=== PATIENT | female | born 1975 | race Caucasian/White ===

== ENCOUNTER 2017-05-05 08:32 | Day surgery (SDC) | payer BC ==
--- NOTE | 2017-05-05 09:07 | OR ---
Anesthesia Pre Procedure Eval Date of Service: 05/05/17 Pre Procedure Evaluation: Last Vital Signs Temp 36.4 C L 05/05/17 08:44 Pulse 80 05/05/17 08:44 Resp 18 05/05/17 08:44 BP 114/66 05/05/17 08:44 Pulse Ox 95 05/05/17 08:44 O2 Oxygen Delivery Method Room Air Anesthesia Pre Procedure Evaluation DATE: 05/05/2017 TIME: INDICATIONS: Headaches, pseudotumor cerebri PAST MEDICAL HISTORY: Ms. Carranza is had a long history of headaches and has been diagnosed as pseudotumor cerebri. She's had 2 lumbar punctures in the past with temporary relief from draining spinal fluid. She is here today for a lumbar puncture which will include opening probably closing pressures and draining of fluid for specimens. EXAM: Heart S1-S2 regular; lungs clear bilaterally ASSESSMENT OF MEDICAL STATUS: Ms. Carranza is on no anticoagulants he procedure and risks were explained, she is an appropriate candidate for lumbar puncture. PLANNED PROCEDURE: Lumbar puncture Home Medications: HOME MEDICATIONS acetaZOLAMIDE [Acetazolamide (Diamox)] 250 mg PO BID 04/28/17 [Last Taken ] Albuterol Sulfate [Proair Hfa] 1 - 2 puff IH Q4H PRN 05/05/17 [Last Taken ] Budesonide/Formoterol Fumarate [Symbicort 80-4.5 Mcg Inhaler] 2 puff IH BID 04/16 [Last Taken 05/04/17] Cetirizine HCl [Zyrtec] 10 mg PO DAILY 05/05/17 [Last Taken 05/04/17] Famotidine [Pepcid] 20 mg PO BID 05/05/17 [Last Taken 05/04/17] acetaZOLAMIDE [Acetazolamide (Diamox)] 500 mg PO HS 05/05/17 [Last Taken ]
[2017-05-05] MEDS ORDERED: LIDOCAINE HCL 20 ML VIAL IJ ONE (09:20)
--- NOTE | 2017-05-05 09:59 | OR ---
Anesthesia Procedure Note - Anesthesia Procedure Note Date of Service: 05/05/17 Narrative: Vital Signs - Last Taken Temp 36.4 C L 05/05/17 08:44 Pulse 72 05/05/17 09:50 Resp 18 05/05/17 09:50 BP 109/73 05/05/17 09:50 Pulse Ox 96 05/05/17 09:50 O2 Oxygen Delivery Method Room Air 05/05/17 09:56 ANESTHESIA PROCEDURE NOTE Date of Procedure: 05/05/2017 Time of procedure: 07 30. Performed by: JUSTINE Sandra CRNA, MSN [place] Supervisor: Mouna LOZANO. Preprocedure diagnosis: Pseudotumor cerebri, headaches. Post procedure diagnosis: Same. Procedure: Lumbar Puncture L3 4. Indications: Headaches. Findings: See below. Details of the procedure: The patient was placed in sitting position the back was prepped with Duraprep and draped in a sterile fashion. The L 34 interspace was localized with 1% lidocaine solution. Using a #22-gauge Velasquez needle the CSF was contacted and clear CSF returned. Ms. Carranza was then turned right lateral where the opening pressure measured 26 centimeters water pressure. 4 vials of CSF were harvested and the closing pressure was measured at 17 cm water pressure. The spinal needle was then removed and a Band-Aid was applied. EBL: Minimal. Fluids: N/A. Specimen:3vials of clear CSF4 milliliters each, 1 vial of CSF with 8 mL. Post procedure condition: The patient tolerated the procedure well. No complications were noted. Thank you for this consultation. Willy Littlejohn CRNA, ARNP, MSN
[2017-05-05 10:16] LABS: CSF Appearance Clear (CLEAR); CSF Color Colorless (COLORLESS); CSF RBC 102 /uL (0-10); CSF WBC 0 /uL (0-10)
[2017-05-05 10:16] LABS: CSF Appearance Clear (CLEAR); CSF Color Colorless (COLORLESS); CSF RBC 3 /uL (0-10); CSF WBC 0 /uL (0-10)
[2017-05-05 10:30] VITALS: BP 114/73
== END 2017-05-05 08:33 | disposition home or self-care (01) ==
LOC: AMB 08:32
PROVIDERS: ATTEND Physician Assistant
PROC: 009U3ZX Drainage of Spinal Canal, Percutaneous Approach, Diagnostic (ICD-10-PCS; principal; 2017-05-05 09:30)
DX: G93.2 Benign intracranial hypertension (principal); Z68.36 Body mass index [BMI] 36.0-36.9, adult

== ENCOUNTER 2017-06-20 02:32 | Emergency (ER) | payer BC ==
[2017-06-20 02:42] VITALS: BP 153/84
[2017-06-20] MEDS ORDERED: KETOROLAC TROMETHAMINE 30 MG/ML VIAL IM ONE (02:51)
[2017-06-20] MEDS ORDERED: KETOROLAC TROMETHAMINE 30 MG/ML VIAL ONE (02:56)
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
[2017-06-20] MEDS ORDERED: HYDROcodone/ACETAMINOPHEN 1 EACH TABLET ONE (03:10)
[2017-06-20] MEDS ORDERED: HYDROcodone/ACETAMINOPHEN 1 EACH TABLET PO ONE (03:10)
== END 2017-06-20 03:17 | disposition home or self-care (01) ==
LOC: ER 02:32
PROC: 2W3BX3Z Immobilization of Left Upper Arm using Brace (ICD-10-PCS; principal; 2017-06-20)
DX: S16.1XXA Strain of muscle, fascia and tendon at neck level, initial encounter (principal); S46.912A Strain of unspecified muscle, fascia and tendon at shoulder and upper arm level, left arm, initial encounter; V43.52XA Car driver injured in collision with other type car in traffic accident, initial encounter; Y93.9 Activity, unspecified; Y92.410 Unspecified street and highway as the place of occurrence of the external cause; K21.9 Gastro-esophageal reflux disease without esophagitis; Z85.41 Personal history of malignant neoplasm of cervix uteri; F17.200 Nicotine dependence, unspecified, uncomplicated

== ENCOUNTER 2017-08-28 04:16 | Observation (INO) | payer BC, OTHER ==
[2017-08-28] MEDS ORDERED: MORPHINE SULFATE 4 MG/ML SYRG IV ONE (04:28)
[2017-08-28] MEDS ORDERED: ALBUTEROL SULFATE/IPRATROPIUM 3 ML NEBU IH ONE ×2 (04:28)
[2017-08-28] MEDS ORDERED: NORMAL SALINE 1,000 ML IV ONE ×2 (04:28→06:57)
[2017-08-28] MEDS ORDERED: MORPHINE SULFATE 4 MG/ML SYRG ONE (04:30)
[2017-08-28] MEDS ORDERED: diphenhydrAMINE HCL 50 MG/ML VIAL IV ONE (04:35)
--- NOTE | 2017-08-28 04:35 | ERNOTE ---
Date of Service: 08/28/17 Time Seen by Provider: 08/28/17 04:22 Stated Complaint: URI Presenting Symptoms:: cough, sore throat, fever Source: patient, family Immunizations: IMMUNIZATION HX Immunizations Up to Date Yes History of Influenza Vaccine Yes Hx Pneumococcal Vaccination No Allergies/Adverse Reactions: Allergies NSAIDS (Non-Steroidal Anti-Inflamma Allergy (Mild, Verified 08/28/17 04:22) Hives no issues with tylenol or tramadol morphine Adverse Reaction (Mild, Verified 08/28/17 04:22) "emotional issues" Home Medications: HOME MEDICATIONS acetaZOLAMIDE [Acetazolamide (Diamox)] 250 mg PO BID 04/28/17 [Last Taken ] Albuterol Sulfate [Proair Hfa] 1 - 2 puff IH Q4H PRN 05/05/17 [Last Taken ] Budesonide/Formoterol Fumarate [Symbicort 80-4.5 Mcg Inhaler] 2 puff IH BID 04/16 [Last Taken 05/04/17] Cetirizine HCl [Zyrtec] 10 mg PO DAILY 05/05/17 [Last Taken 05/04/17] Famotidine [Pepcid] 20 mg PO BID 05/05/17 [Last Taken 05/04/17] acetaZOLAMIDE [Acetazolamide (Diamox)] 500 mg PO HS 05/05/17 [Last Taken ] - History of Present Ilness Narrative: This is a 41-year-old female who presents to the emergency department at 4:30. The patient says she got a flu shot about 3 weeks ago and since then hasn't been "quite right". Patient says that her symptoms have been waxing and waning. She is complaining of a productive cough. She has been having yellow colored sputum with blood in it. She is complaining of right-sided pleuritic chest pain. She is complaining of myalgias. Says that she feels like she has a fever. She is a smoker but says she is only been smoking 5 cigarettes a day. Review of Systems - Review of Systems Constitutional: Present: fever, weakness, fatigue, malaise EYE: Present: no symptoms reported ENT: Present: no symptoms reported Respiratory: Present: shortness of breath, cough, wheezing Cardiology: Present: chest pain, other - pleuritic right-sided Gastrointestinal/Abdominal: Present: eating less, drinking less Genitourinary: Present: no symptoms reported Musculoskeletal: Present: back pain, muscle pain, neck pain, joint pain Skin: Present: no symptoms reported Neurological: Present: no symptoms reported Endocrine: Present: no symptoms reported Hematologic/Lymphatic: Present: no symptoms reported Psych: Present: no symptoms reported All Other Systems: All systems neg except as marked - Patient's Past Medical History Patient History - Medical: GERD, Other Patient History - Cardiac/Respiratory: Asthma Patient History - Cancer: Cervical Patient History - Surgical Procedures: Cholecystectomy, Hysterectomy, Tubal Ligation, Other Patient History - Other: None - Social History Living Situations: home Abuse History: No History of abuse Psych History: No pertinent hx Smoking Status: Current every day smoker Alcohol Use: none Drug Use: none - Immunizations Immunizations Up to Date: Yes Hx Pneumococcal Vaccination: No History of Influenza Vaccine: Yes Physical Exam - Physical Exam General Appearance: Present: wd/wn, alert, other - patient appears acutely uncomfortable. She is coughing. She is unable to catch her breath at times. Head Exam: Present: normal inspection, no evidence of injury Eye Exam: Normal inspection: bilateral Ears, Nose, Throat: Present: normal ENT inspection, normal pharynx Neck: Present: normal inspection, nontender, other - no nodes Respiratory: Present: other - she has mild respiratory distress with diffuse wheezing cough and decreased breath sounds at the right base Cardiovascular/Chest: Present: regular rate, rhythm, other - tachycardic I hear no murmurs or rubs Gastrointestinal/Abdominal: Present: normal bowel sounds, nontender, nondistended, soft Extremity Exam: Present: normal inspection, non-tender, normal range of motion, no edema Neurological Exam: Present: alert, oriented, normal mood/affect, no motor/ sensory deficits Skin Exam: Present: normal color, warm/dry Lymphatic Exam: Present: no adenopathy ED Progress - Results and Orders Patient's Lab Results:: I have reviewed the patient's lab results. - Vital Signs Patient's Vital Signs:: I have reviewed the patient's vital signs. Vital Signs: Vital Signs 08/28/17 04:18 Temperature 37.8 C H Pulse Rate 121 H Respiratory 24 H Rate Blood Pressure 115/63 O2 Sat by Pulse 94 Oximetry - Progress/Reassessment Chief Complaint: Upper Respiratory Symptoms Progress:: Improved Progress Note-Subjective: 08/28/17 06:01 The patient received breathing treatments steroids and morphine for cough and Benadryl for itching related to the morphine. The patient is feeling a bit better although she is still not oxygenating well. She is saturating between 90 and 93% on room air. She is still diminished throughout her lungs. She also has a potassium of 2.5. Potassium at 2.5 isn't admittable diagnosis. Hypoxia isn't admittable diagnosis. The patient technically meets the criteria for sepsis. Lactic acid is normal. If this is sepsis it's a viral infection causing it. The viral panel is presently pending. I anticipate she will need one day or less in the hospital to get her feeling better. Departure Clinical Impression: Sepsis, Upper respiratory infection - Departure Disposition: [facility] Condition: Good Referrals: Emy Braxton FNP [Primary Care Provider] -
[2017-08-28] MEDS ORDERED: diphenhydrAMINE HCL 50 MG/ML VIAL ONE (04:44)
[2017-08-28 04:55] LABS: Hematocrit 40.4 % (37.0-47.0); Hemoglobin 14.3 gm/dL (12.5-16.0); Mean Corpuscular Hemoglobin 31.5 pg (27-31); Mean Corpuscular Hgb Conc 35.4 g/dl (32-36); Mean Platelet Volume 9.4 fl (6.0-9.5); Neutrophil # 12.3 K/mm3 (1.3-6.0); Neutrophil % 72.4 % (42-75.0); Platelet Count 255 K/mm3 (150-450); Red Blood Count 4.54 M/mm3 (4.2-5.4); Red Cell Distribution Width 12.3 % (11.5-14.0)
[2017-08-28 05:02] LABS: Anion Gap 13.5 mmol/L (6.8-13.8); Estimated Creat Clear 104.3
[2017-08-28 05:04] LABS: Potassium 2.5 mmol/L (3.4-4.6)
[2017-08-28] MEDS ORDERED: METHYLPREDNISOLONE SOD SUCC/PF 125 MG/2 ML VIAL IV ONE (05:05)
[2017-08-28] MEDS ORDERED: POTASSIUM CHLORIDE 20 MEQ TABLET.SA PO ONE (05:05)
[2017-08-28] MEDS ORDERED: POTASSIUM CHLORIDE 20 MEQ TABLET.SA ONE (05:12)
[2017-08-28] MEDS ORDERED: METHYLPREDNISOLONE SOD SUCC/PF 125 MG/2 ML VIAL ONE (05:12)
[2017-08-28] MEDS: POTASSIUM CHLORIDE 100 ML IV SCH ×4 (05:19→09:47)
[2017-08-28] MEDS ORDERED: AZITHROMYCIN 500 MG in DEXTROSE 5 % IN WATER 250 ML IV ONE ×2 (05:30)
[2017-08-28] MEDS: NORMAL SALINE 1,000 ML IV PRN ×2 (06:29→09:46)
[2017-08-28] MEDS ORDERED: POTASSIUM CHLORIDE 10 MEQ in NORMAL SALINE 1,000 ML IV SCH (06:30)
[2017-08-28 10:00] VITALS: BP 106/65
--- NOTE | 2017-08-28 12:27 | HP ---
Chief Complaint - Chief Complaint Date of Service: 08/28/17 Time of Service: 11:00 Chief Complaint: Cough History of Present Illness: The patient presented to the emergency department with a productive cough with yellow colored sputum tinged with blood. She also complained of right-sided chest pain that occurred while coughing or after having a coughing attack. The patient also complained of body aches, fevers and chills. She denies any known sick contacts. The first thing the patient said to me when I saw her after she was admitted was that she wanted to go home. - Patient's Past Medical History Patient History - Medical: GERD, Other Patient History - Cardiac/Respiratory: Asthma Patient History - Cancer: Cervical Patient History - Surgical Procedures: Cholecystectomy, Hysterectomy, Tubal Ligation, Other Patient History - Other: None LMP (females 10-50): 12 yrs ago - Family History Mother Family History - Medical: , History Unknown Family History - Cardiac/Respiratory: CHF, COPD, Hypertension, Myocardial Infarction Family History - Cancer: No pertinent family hx Father Family History - Medical: Seizures Family History - Cardiac/Respiratory: History Unknown, Hypertension Family History - Cancer: No pertinent family hx, History Unknown - Social History Living Situations: spouse Abuse History: No History of abuse Psych History: No pertinent hx Smoking Status: Current some day smoker Have you smoked in the past 12 months: Yes Do you dip or chew tobacco: No Patient requests Smoking Cessation Consult: No Initiate information on Smoking Cessation: Yes Alcohol Use: none Drug Use: none - Immunizations Immunizations Up to Date: Yes Hx Pneumococcal Vaccination: No History of Influenza Vaccine: Yes Review Of Systems (GEN) - Review of Systems Generalized/Overall Review: Present: Weakness, Chills, Fever, Malaise, Fatigue EENTM: Present: No Symptoms Reported Respiratory: Present: Cough Cardiac: Present: Chest Pain - secondary to coughing Abdominal: Present: No Symptoms Reported Genitourinary: Present: No Symptoms Reported Musculoskeletal: Present: No Symptoms Reported Neurological: Present: No Symptoms Reported Skin: Present: No Symptoms Reported Endocrine: Present: No Symptoms Reported Misc: All systems neg except as marked Immunizations: IMMUNIZATION HX Immunizations Up to Date Yes History of Influenza Vaccine Yes Hx Pneumococcal Vaccination No Allergies/Adverse Reactions: Allergies Allergy/AdvReac Type Severity Reaction Status Date / Time NSAIDS (Non-Steroidal Allergy Mild Hives Verified 08/28/17 04:22 Anti-Inflamma morphine AdvReac Mild "emotional Verified 08/28/17 04:22 issues" Home Medications: HOME MEDICATIONS RX: acetaZOLAMIDE [Diamox] 250 mg PO QAM 04/28/17 [Last Taken 05/04/17] RX: Albuterol Sulfate [Proair Hfa] 1 - 2 puff IH Q4H PRN 05/05/17 [Last Taken ] RX: Budesonide/Formoterol Fumarate [Symbicort 80-4.5 Mcg Inhaler] 2 puff IH BID 05/05/17 [Last Taken 05/04/17] RX: Cetirizine HCl [Zyrtec] 10 mg PO DAILY 05/05/17 [Last Taken 05/04/17] RX: Famotidine [Pepcid] 20 mg PO BID 05/05/17 [Last Taken 05/04/17] RX: acetaZOLAMIDE [Diamox] 500 mg PO HS 05/05/17 [Last Taken 05/04/17] Benzonatate [Tessalon] 200 mg PO TID PRN #30 cap 08/28/17 [Last Taken Unknown] RX: Azithromycin 500 mg PO DAILY #8 tablet 08/28/17 [Last Taken Unknown] RX: Potassium Chloride [K-Dur] 40 meq PO DAILY #60 tab 08/28/17 [Last Taken Unknown] RX: acetaZOLAMIDE [Diamox] 500 mg PO DAILY 08/28/17 [Last Taken Unknown] Exam - Exam Vital Signs: Vital Signs - Last Taken Temp 36.8 C 08/28/17 09:59 Pulse 90 08/28/17 09:59 Resp 18 08/28/17 09:59 BP 106/65 08/28/17 09:59 Pulse Ox 96 08/28/17 09:59 Constitutional: Present: Alert, Oriented x3, Cooperative, Well developed, Well nourished, Acute distress - Appears uncomfortable especially with coughing, Obese ENT Exam: Present: hearing grossly normal, moist mucous membranes Eye Exam: bilateral eye: normal inspection, EOMI Respiratory: Present: other - Coarse breath sounds bilaterally with diffuse expiratory wheezes Cardiovascular/Chest: Present: tachycardia Abdomen: Present: soft, nontender, nondistended Extremity: Present: normal range of motion, normal inspection, no pedal edema Skin Exam: Present: normal color, warm/dry, no cyanosis Neurologic: Present: alert, normal mood/affect, oriented x 3 Appearance: Present: appropriate appearance, appropriate insight, neat, no memory impairment Eye contact: Present: cooperative, good eye contact, normal speech Thoughts: Present: normal thought pattern, no apparent hallucination Diagnostic Studies: Laboratory Results WBC 17.0 K/mm3 (4.0-10.5) H 08/28/17 04:50 RBC 4.54 M/mm3 (4.2-5.4) 08/28/17 04:50 Hgb 14.3 gm/dL (12.5-16.0) 08/28/17 04:50 Hct 40.4 % (37.0-47.0) 08/28/17 04:50 MCV 89.0 fl (78-100) 08/28/17 04:50 MCH 31.5 pg (27-31) H 08/28/17 04:50 MCHC 35.4 g/dl (32-36) 08/28/17 04:50 RDW 12.3 % (11.5-14.0) 08/28/17 04:50 Plt Count 255 K/mm3 (150-450) 08/28/17 04:50 MPV 9.4 fl (6.0-9.5) 08/28/17 04:50 Immature Gran % (Auto) 0.40 % (0.001-0.429) 08/28/17 04:50 Immature Gran # (Auto) 0.07 K/mm3 (0.000-0.0310) H 08/28/17 04:50 Neutrophils % 72.4 % (42-75.0) 08/28/17 04:50 Lymphocytes % 18.3 % (20-51) L 08/28/17 04:50 Monocytes % 8.3 % (0.0-9) 08/28/17 04:50 Eosinophils % 0.3 % (0.0-3.0) 08/28/17 04:50 Basophils % 0.3 % (0.0-1.0) 08/28/17 04:50 Nucleated RBC % 0.0 k/mm3 (0-1) 08/28/17 04:50 Neutrophils # 12.3 K/mm3 (1.3-6.0) H 08/28/17 04:50 Lymphocytes # 3.1 k/mm3 (1.5-3.5) 08/28/17 04:50 Monocytes # 1.4 k/mm3 (0.0-1.0) H 08/28/17 04:50 Eosinophils # 0.1 k/mm3 (0.0-0.7) 08/28/17 04:50 Absolute Basophils 0.1 k/mm3 (0.0-0.1) 08/28/17 04:50 Sodium 141 mmol/L (132-142) 08/28/17 04:50 Plasma Sodium 141 mmol/L (130-142) 08/28/17 04:50 Potassium 2.5 mmol/L (3.4-4.6) L D 08/28/17 04:50 Chloride 103 mmol/L (97-106) 08/28/17 04:50 Carbon Dioxide 27.0 mmol/L (24-32.6) 08/28/17 04:50 Anion Gap 13.5 mmol/L (6.8-13.8) 08/28/17 04:50 BUN 9 mg/dL (3-23) 08/28/17 04:50 Creatinine 0.69 mg/dL (0.4-1.4) 08/28/17 04:50 Est GFR (Non-Af Amer) 100 mL/min (60-130) D 08/28/17 04:50 BUN/Creatinine Ratio 13.0 (9.0-21.6) 08/28/17 04:50 Random Glucose 119 mg/dL (70-110) H 08/28/17 04:50 Lactic Acid, Venous 0.9 mmol/L (0.4-1.9) 08/28/17 04:50 Calcium 8.0 mg/dL (7.9-10.9) 08/28/17 04:50 Chlamy pneumoniae PCR Not detected (NotDetected) 08/28/17 05:05 Adenovirus (PCR) Not detected (NotDetected) 08/28/17 05:05 B. pertussis DNA (PCR) Not detected (NotDetected) 08/28/17 05:05 Coronavirus OC43 (PCR) Not detected (NotDetected) 08/28/17 05:05 Coronavirus HKU1 (PCR) Not detected (NotDetected) 08/28/17 05:05 Coronavirus 229E (PCR) Not detected (NotDetected) 08/28/17 05:05 Coronavirus NL63 (PCR) Not detected (NotDetected) 08/28/17 05:05 Human Metapneumovirus Not detected (NotDetected) 08/28/17 05:05 Influenza A (H1) PCR Not detected (NotDetected) 08/28/17 05:05 Influenza A (H1N1) PCR Not detected (NotDetected) 08/28/17 05:05 Influenza A (H3) PCR Not detected (NotDetected) 08/28/17 05:05 Influenza B (RT-PCR) Not detected (NotDetected) 08/28/17 05:05 M. pneumoniae (PCR) Not detected (NotDetected) 08/28/17 05:05 Parainfluenza 1 (PCR) Not detected (NotDetected) 08/28/17 05:05 Parainfluenza 2 (PCR) Not detected (NotDetected) 08/28/17 05:05 Parainfluenza 3 (PCR) Not detected (NotDetected) 08/28/17 05:05 Parainfluenza 4 (PCR) Not detected (NotDetected) 08/28/17 05:05 RSV (PCR) Not detected (NotDetected) 08/28/17 05:05 Rhinovirus (PCR) Detected (NotDetected) H 08/28/17 05:05 Assessment/Plan - Narrative Narrative: Patient admitted to the hospital observation status overnight. Patient will be discharged home. Please see discharge summary from the same day for further details. - Assessment/Plan (1) Rhinovirus Problem: Acute
--- NOTE | 2017-08-28 12:34 | DS ---
(1) Rhinovirus Problem: Acute (2) Hypokalemia Problem: Acute (3) Bronchitis Problem: Acute Description of Stay: ADMISSION DATE: 08/28/2017 DISCHARGE DATE: 08/28/2017 ADMISSION HPI: The patient presented to the emergency department with a productive cough with yellow colored sputum tinged with blood. She also complained of right-sided chest pain that occurred while coughing or after having a coughing attack. The patient also complained of body aches, fevers and chills. She denies any known sick contacts. The first thing the patient said to me when I saw her after she was admitted was that she wanted to go home. HOSPITAL COURSE: The patient was admitted to the hospital for rhinovirus, AKA the common cold. The patient was discharged home in stable condition and instructed to complete a course of azithromycin which I prescribed to help decrease her lung inflammation as she likely has an associated bronchitis. The patient was also prescribed a cough medicine to use as needed. The patient was instructed to follow-up with her primary care provider within one week. The patient was also found to be hypokalemic which she states always happens when her Diamox doses changed and she states there was a recent dose change. The patient was started on calcium chloride 40 mEq daily and instructed to have a repeat BMP within 1 week. FOLLOW-UP APPOINTMENTS: -Follow-up with PCP, Emy Braxton, within the next 1 week. Check BMP to monitor potassium level at follow-up visit NEW OR CHANGED MEDICATIONS: -Azithromycin 500mg PO daily X 4 days -Benzonatate 200mg PO TID PRN cough -KCl 40mEq PO daily DISCONTINUED MEDICATIONS: None RADIOLOGY REPORTS: PA and lateral chest x-ray on 08/28/2017 showed: The lungs demonstrate no focal consolidation or acute abnormality. There is no pleural effusion or pneumothorax. Cardiac silhouette and pulmonary vasculature are normal. Osseous structures are within normal limits for age. IMPRESSION: No acute cardiopulmonary processes detected. Chest CT angiogram on 08/28/2017 showed: No PE or acute cardiopulmonary processes detected. Nonspecific shoddy mediastinal and hilar nodes. These are likely reactive. Procedures Performed: none Results and Findings: Laboratory Tests 08/28/17 08/28/17 08/28/17 04:50 04:50 04:50 WBC 17.0 H Hct 40.4 Plt Count 255 Sodium 141 Plasma Sodium 141 Potassium 2.5 L D Chloride 103 Carbon Dioxide 27.0 Anion Gap 13.5 BUN 9 Creatinine 0.69 Est GFR (Non-Af Amer) 100 D BUN/Creatinine Ratio 13.0 Random Glucose 119 H Lactic Acid, Venous 0.9 Calcium 8.0 Chlamy pneumoniae PCR Adenovirus (PCR) B. pertussis DNA (PCR) Coronavirus OC43 (PCR) Coronavirus HKU1 (PCR) Coronavirus 229E (PCR) Coronavirus NL63 (PCR) Human Metapneumovirus Influenza A (H1) PCR Influenza A (H1N1) PCR Influenza A (H3) PCR Influenza B (RT-PCR) M. pneumoniae (PCR) Parainfluenza 1 (PCR) Parainfluenza 2 (PCR) Parainfluenza 3 (PCR) Parainfluenza 4 (PCR) RSV (PCR) Rhinovirus (PCR) 08/28/17 08/28/17 05:05 14:06 WBC Hct Plt Count Sodium Plasma Sodium Potassium 3.7 D Chloride Carbon Dioxide Anion Gap BUN Creatinine Est GFR (Non-Af Amer) BUN/Creatinine Ratio Random Glucose Lactic Acid, Venous Calcium Chlamy pneumoniae PCR Not detected Adenovirus (PCR) Not detected B. pertussis DNA (PCR) Not detected Coronavirus OC43 (PCR) Not detected Coronavirus HKU1 (PCR) Not detected Coronavirus 229E (PCR) Not detected Coronavirus NL63 (PCR) Not detected Human Metapneumovirus Not detected Influenza A (H1) PCR Not detected Influenza A (H1N1) PCR Not detected Influenza A (H3) PCR Not detected Influenza B (RT-PCR) Not detected M. pneumoniae (PCR) Not detected Parainfluenza 1 (PCR) Not detected Parainfluenza 2 (PCR) Not detected Parainfluenza 3 (PCR) Not detected Parainfluenza 4 (PCR) Not detected RSV (PCR) Not detected Rhinovirus (PCR) Detected H Discharge Disposition: Home self care Disposition: Home self-care Condition: Stable Discharge Activity: Activity as tolerated Discharge Diet: General/regular food Referrals: Emy Braxton FNP [Primary Care Provider] - Problem Oriented Discharge Instructions to Patient/Family: Hypokalemia Additional Patient Instructions (free text): Follow-up with PCP, Emy Braxton, within the next 1 week. Check BMP to monitor potassium level at follow-up visit. [facility] will call you tomorrow with follow up appointment. Prescriptions (Any new or edited meds): RX: Azithromycin 500 mg PO DAILY #8 tablet Benzonatate [Tessalon] 200 mg PO TID PRN #30 cap PRN Reason: Cough RX: Potassium Chloride [K-Dur] 40 meq PO DAILY #60 tab Complete Home Medications List: Complete Home Medication List: RX: acetaZOLAMIDE [Diamox] 250 mg PO QAM 04/28/17 RX: Albuterol Sulfate [Proair Hfa] 1 - 2 puff IH Q4H PRN 05/05/17 RX: Budesonide/Formoterol Fumarate [Symbicort 80-4.5 Mcg Inhaler] 2 puff IH BID 05/05/17 RX: Cetirizine HCl [Zyrtec] 10 mg PO DAILY 05/05/17 RX: Famotidine [Pepcid] 20 mg PO BID 05/05/17 RX: acetaZOLAMIDE [Diamox] 500 mg PO HS 05/05/17 Benzonatate [Tessalon] 200 mg PO TID PRN #30 cap 08/28/17 RX: Azithromycin 500 mg PO DAILY #8 tablet 08/28/17 RX: Potassium Chloride [K-Dur] 40 meq PO DAILY #60 tab 08/28/17 RX: acetaZOLAMIDE [Diamox] 500 mg PO DAILY 08/28/17 Amb Orders for Discharge: Basic Metabolic Panel Time Frame: 1 Week, Location: Determined By Patient
== END 2017-08-28 15:00 | disposition home or self-care (01) ==
LOC: ER 04:16 → MS 06:01
PROVIDERS: ADMIT Nurse Practitioner; ATTEND Internal Medicine
DX: J20.6 Acute bronchitis due to rhinovirus (principal); F17.210 Nicotine dependence, cigarettes, uncomplicated; E87.6 Hypokalemia; J45.909 Unspecified asthma, uncomplicated
CPT/HCPCS: 36415; 71020; 71275; 80048; 83605; 84132; 85025; 87040; 87633; 94640; 96365; 96366; 96375; 99284; G0378